=== PATIENT | female | born 1985 | race Caucasian/White ===

== ENCOUNTER 2017-05-16 07:47 | Inpatient (IN) | payer MEDICAID ==
[~2017-05-16] VITALS: Ht 160 cm; Wt 90.0 kg
[~2017-05-16 07:47] MED LIST: IBUP-1542 PO
[2017-05-16 08:55] VITALS: Ht 160 cm; Wt 90.0 kg
[2017-05-16 08:56] VITALS: BP 108/66; PULSE 78; RESP 18
[2017-05-16] MEDS ORDERED: METHYLERGONOVINE 0.2 MG INJ IM PRN ×2 (09:00→14:30)
[2017-05-16] MEDS ORDERED: OXYTOCIN 30 UNITS/LR 500 ML IV PRN ×2 (09:00→14:30)
[2017-05-16] MEDS ORDERED: MISOPROSTOL 200 MCG TAB PR PRN ×2 (09:00→14:30)
[2017-05-16] MEDS ORDERED: CARBOPROST 250 MCG INJ IM PRN ×2 (09:00→14:30)
[2017-05-16] MEDS ORDERED: CEFAZOLIN 2 GM/50 ML (PMX) 50 ML IV SCH (09:00)
[2017-05-16] MEDS: LACTATED RINGER'S 1,000 ML IV SCH ×4 (09:49→22:08)
[2017-05-16 10:01] LABS: BASOPHILS % 0.6 % (0.0-2.0); EOSINOPHILS # 0.1 10^3/ul (0.0-0.5); EOSINOPHILS % 1.8 % (0.0-7.0); HEMATOCRIT 35.9 % (37.0-47.0); HEMOGLOBIN 11.9 g/dl (12.0-16.0); LYMPHOCYTES # 2.4 10^3/ul (0.8-2.9); LYMPHOCYTES % 32.5 % (15.0-51.0); MEAN CORPUSCULAR HEMOGLOBIN 29.9 pg (29.0-33.0); MEAN CORPUSCULAR HGB CONC 33.1 g/dl (32.0-37.0); MEAN CORPUSCULAR VOLUME 90.2 fl (82.0-101.0); MEAN PLATELET VOLUME 10.3 fl (7.4-10.4); MONOCYTE # 0.4 10^3/ul (0.3-0.9); MONOCYTES % 5.8 % (0.0-11.0); NEUTROPHIL # 4.3 10^3/ul (1.6-7.5); PLATELET COUNT 224 10^3/UL (140-415); RED BLOOD COUNT 3.98 10^6/ul (4.20-5.40); RED CELL DISTRIBUTION WIDTH 13.2 % (11.5-14.5); WHITE BLOOD COUNT 7.2 10^3/ul (4.8-10.8)
[2017-05-16] MEDS ORDERED: CITRIC ACID/SODIUM CITRATE 15 ML CUP ONE (10:01)
[2017-05-16] MEDS ORDERED: CITRIC ACID/SODIUM CITRATE 15 ML CUP PO ONE (10:30)
[2017-05-16 10:35] LABS: INR 0.91; PROTIME 12.3 Sec (12.2-14.2)
[2017-05-16 10:36] LABS: PARTIAL THROMBOPLASTIN TIME 24.7 Sec (25.0-35.0)
--- NOTE | 2017-05-16 10:47 | HP ---
Date/Time of Note Date/Time of Note DATE: 05/16/17 TIME: 10:46 OB - History Hx of Present Free Text/Dictation g2p 1 at term for repeat c/s Care: Good Care Ultrasounds: Normal mid trimester US Obstetrical Complications: None Medical Complications: None Past Family/Social History * Past Medical, Surgical, Family and Obstetric Histories reviewed from chart. OB Admission Exam Vital Signs Vital Signs Vital Signs Date Time Temp Pulse Resp B/P Pulse Ox O2 Delivery O2 Flow Rate FiO2 05/16/17 08:56 98.5 78 18 108/66 Room Air Physical Exam HEENT: WNL Heart: Rhythm Normal Lungs: Clear, Equal Abdomen: WNL Extremities: Normal Reflexes: Normal Cervical Dilatation: None Effacement: 0% Station: [place] Contractions on Admission: None Last 72 hours Lab Results CBC & BMP 05/16/17 09:35 OB Assessment/Plan Reason for admission: section Plan: Section IRVING MORA MD May 16, 2017 10:47
[2017-05-16] MEDS ORDERED: KETOROLAC 30 MG INJ ONE (10:48)
[2017-05-16] MEDS ORDERED: ONDANSETRON 4 MG INJ ONE (10:48)
[2017-05-16] MEDS ORDERED: morphine SULFATE/PF (10 MG/10 ML) INJ ONE (10:48)
[2017-05-16] MEDS ORDERED: METOCLOPRAMIDE 10 MG INJ ONE (11:00)
[2017-05-16] MEDS ORDERED: EPHEDrine SULFATE 50 MG/5 ML SYG ONE (11:03)
--- NOTE | 2017-05-16 11:26 | OPR ---
Operative Report Planned Procedure Procedure date May 16, 2017 Procedure(s) repeat c/s Performed by see signature line Copy Chief dr. michel Pre-procedure diagnosis repeat c/s Anesthesia Type: spinal Post-Procedure Post-procedure diagnosis repeat c/s Findings Live Baby [], Apgars [] and [], weight [], position [], [] presentation []cord. Estimated Blood Loss: 600 - 700 mls Specimen(s) none Grafts/Implant(s) none Complication(s) none Pt Condition post procedure: stable Procedure Description Under satisfactory spinal anesthesia, the patient was prepped and draped and placed in a supine position, tilted to the left. Pfannenstiel incision was made , carried through the subcutaneous tissue. Bleeders brought under control with electrocautery. Fascia incised to the length of the incision. Rectus muscles from the fascia, divided midline. Peritoneum exposed, entered through a transverse incision. Exploration of abdomen revealed gravid uterus. Bladder flap was developed. Transverse incision was made in the lower segment of the uterus. Amniotic sac ruptured. [clear ] amniotic fluid noted. [] Nasal oropharyngeal suction was performed. The baby was handed to the team for immediate attention. The placenta was delivered manually intact. Uterine cavity was cleaned with wet sponge and drainage established. Uterus closed in 2 layers using [one monocryl] in continuous fashion. Peritoneal cavity irrigated with warm saline. Sponge, needle and instrument count reported to be correct. Abdominal peritoneum closed with [] continuously. Rectus muscle approximated with []. Fascia closed with one monocryl[], and skin closed with [place]sha. Estimated blood loss 700[]mL. IRVING MORA MD May 16, 2017 11:26
[2017-05-16] MEDS ORDERED: morphine (1 MG/ML) 10ML SYRINGE IV PRN ×3 (12:00)
[2017-05-16] MEDS ORDERED: morphine 4 MG/ML VIAL IV PRN (12:00)
[2017-05-16] MEDS ORDERED: OXYTOCIN 30 UNITS/LR 500 ML IV SCH (12:00)
[2017-05-16] MEDS ORDERED: morphine 2 MG INJ IV PRN ×2 (12:00)
[2017-05-16] MEDS ORDERED: ONDANSETRON 4 MG INJ IV PRN ×2 (12:00)
[2017-05-16] MEDS ORDERED: DIPHENHYDRAMINE 50 MG INJ IV PRN ×2 (12:00)
[2017-05-16] MEDS ORDERED: NALOXONE (0.4 MG/ML) INJ IV PRN (12:00)
[2017-05-16] MEDS: OXYTOCIN 30 UNITS/LR 500 ML IV SCH ×2 (14:24→17:40)
[2017-05-16 14:30] VITALS: BP 107/59; PULSE 64; RESP 18
[2017-05-16] MEDS ORDERED: NACL 0.9% 3 ML SYG IV SCH (14:30)
[2017-05-16] MEDS ORDERED: NA PHOSPHATE/BIPHOS 133 ML ENEMA PR PRN (14:30)
[2017-05-16] MEDS ORDERED: LANOLIN 7 GM TUBE TOP PRN (14:30)
[2017-05-16] MEDS: KETOROLAC 30 MG INJ IV PRN (17:14)
[2017-05-16] MEDS ORDERED: METOCLOPRAMIDE 10 MG INJ IV ONE (18:03)
[2017-05-16 19:40] VITALS: BP 104/58; PULSE 94; RESP 19
[2017-05-17 00:20] VITALS: BP 112/60; PULSE 86; RESP 17
[2017-05-17] MEDS: KETOROLAC 30 MG INJ IV PRN ×2 (03:48→11:03)
[2017-05-17] MEDS: LACTATED RINGER'S 1,000 ML IV SCH (03:51)
[2017-05-17 04:15] VITALS: BP 91/55; PULSE 90; RESP 18
[2017-05-17 07:40] VITALS: BP 98/56; PULSE 94; RESP 18
--- NOTE | 2017-05-17 07:52 | QN ---
Documentation Comment doing well vss abd soft d/c IV IRVING MORA MD May 17, 2017 07:52
--- NOTE | 2017-05-17 09:21 | PN ---
Date/Time of Note Date/Time of Note DATE: 05/17/17 TIME: 09:20 Assessment/Plan VTE Prophylaxis VTE Prophylaxis Intervention: ambulation Lines/Catheters IV Catheter Type (from Nrsg): Peripheral IV Subjective 24 Hr Interval Summary Free Text/Dictation Anesthesia note: A 32 year female s/p spinal duramorph POD #1 is doing fine. no pain, itching, headache, sensory or motor deficit, n?V is controlled with medicine. back is clean. care per surgery Exam/Review of Systems Vital Signs Vitals Vital Signs Date Time Temp Pulse Resp B/P Pulse Ox O2 Delivery O2 Flow Rate FiO2 05/17/17 04:15 98.9 90 18 91/55 Room Air Intake and Output 05/16/17 05/16/17 05/17/17 15:00 23:00 07:00 Intake Total 1625 ml 1200 ml 1500 ml Output Total 750 ml 400 ml 600 ml Balance 875 ml 800 ml 900 ml Results Result Diagram: 05/16/17 0935 Results 24 hrs Laboratory Tests Test 05/16/17 09:35 White Blood Count 7.2 Red Blood Count 3.98 L Hemoglobin 11.9 L Hematocrit 35.9 L Mean Corpuscular Volume 90.2 Mean Corpuscular Hemoglobin 29.9 Mean Corpuscular Hemoglobin Concent 33.1 Red Cell Distribution Width 13.2 Platelet Count 224 Mean Platelet Volume 10.3 # Neutrophils % 59.0 Lymphocytes % 32.5 Monocytes % 5.8 Eosinophils % 1.8 Basophils % 0.6 Nucleated Red Blood Cells % 0.0 Neutrophils # 4.3 Lymphocytes # 2.4 Monocytes # 0.4 Eosinophils # 0.1 Basophils # 0.0 Nucleated Red Blood Cells # 0.0 Prothrombin Time 12.3 Prothrombin Time Ratio 1.0 INR International Normalized Ratio 0.91 Activated Partial Thromboplast Time 24.7 L Rapid Plasma Reagin NONREACTIVE Hepatitis B Surface Antigen NEGATIVE Medications Medications Current Medications Naloxone HCl (Narcan) 0.1 mg Q2M PRN IV FOR RESP RATE 8 OR LESS; Start at 12:00; Stop 05/17/17 at 11:59 Ketorolac Tromethamine (Toradol) 30 mg Q6H PRN IV PAIN Last administered on t 03:48; Admin Dose 30 MG; Start 05/16/17 at 12:00; Stop 05/17/17 at 11:59 Morphine Sulfate (morphine) 2 mg Q2 PRN IV BREAKTHROUGH PAIN; Start 05/16/17 at 12:00; Stop 05/17/17 at 11:59 Morphine Sulfate (morphine) 2 mg Q3H PRN IV PAIN LEVEL 1-5; Start 05/16/17 at 12:00; Stop 05/17/17 at 11:59 Morphine Sulfate (morphine) 4 mg Q3H PRN IV PAIN LEVEL 6-10; Start 05/16/17 at 12:00; Stop 05/17/17 at 11:59 Diphenhydramine HCl (Benadryl) 25 mg Q6H PRN IV ITCHING Last administered on 17:14; Admin Dose 25 MG; Start 05/16/17 at 12:00; Stop 05/17/17 at 11: 59 Ondansetron HCl 4 mg 4 mg Q6H PRN IV NAUSEA AND/OR VOMITING Last administered on 05/16/17 15:42; Admin Dose 4 MG; Start 05/16/17 at 12:00; Stop 05/17/17 at 11:59 Lactated Ringer's (Lr) 1,000 ml @ 125 mls/hr Q8H IV Last administered on 03:51; Admin Dose 125 MLS/HR; Start 05/16/17 at 14:24 Acetaminophen/ Hydrocodone Bitart ([place] (5/325)) 2 tab Q4H PRN PO PAIN LEVEL 7 -10; Start 05/16/17 at 14:30 Ibuprofen (Motrin) 800 mg Q8 PO ; Start 05/17/17 at 14:00 Simethicone (Mylicon) 160 mg Q8H PRN PO DISTENSION/GAS/BLOATING; Start at 14:30 Sodium Biphosphate/ Sodium Phosphate (Fleet Enema) 133 ml DAILY PRN [place] CONSTIPATION; Start 05/16/17 at 14:30 Diphtheria/ Tetanus/Acell Pertussis (Adacel) 0.5 ml ONCE ONCE IM* ; Start at 09:00; Stop 05/19/17 at 09:01 Measles/Mumps/ Rubella Vaccine Live 0.5 ml 0.5 ml ONCE ONCE SC* ; Start at 09:00; Stop 05/19/17 at 09:01 Oxytocin/Lactated Ringer's 500 ml @ 0 mls/hr ONCE PRN IV For Hemorrhage Management; Start 05/16/17 at 14:30 Methylergonovine Maleate (Methergine) 0.2 mg ONCE PRN IM VAGINAL BLEEDING; Start 05/16/17 at 14:30 Carboprost Tromethamine (Hemabate) 250 mcg ONCE PRN IM VAGINAL BLEEDING; Start 05/16/17 at 14:30 Misoprostol (Cytotec) 1,000 mcg ONCE PRN [place] VAGINAL BLEEDING; Start 05/16/17 at 14:30 Influenza Virus Vaccine (Fluzone) 0.5 ml ONCE ONCE IM* ; Start 05/17/17 at 21:00 ; Stop 05/17/17 at 21:01 DONNELL MARTIN MD May 17, 2017 09:21
[2017-05-17] MEDS: IBUPROFEN 800 MG TAB PO SCH ×2 (14:10→22:13)
[2017-05-17 16:00] VITALS: BP 103/58; PULSE 91; RESP 18
[2017-05-17 20:05] VITALS: BP 106/58; PULSE 90; RESP 17
[2017-05-17] MEDS: HYDROCODONE/APAP (5/325) TAB PO PRN (20:32)
[2017-05-17] MEDS ORDERED: INFLUENZA VIRUS VACCINE 0.5 ML SYG IM* ONE (21:00)
[2017-05-18 04:20] VITALS: BP 100/58; PULSE 75; RESP 17
[2017-05-18] MEDS: IBUPROFEN 800 MG TAB PO SCH ×3 (05:48→21:37)
[2017-05-18 08:05] VITALS: BP 100/57; PULSE 82; RESP 19
[2017-05-18 09:09] LABS: BASOPHILS % 0.3 % (0.0-2.0); EOSINOPHILS # 0.2 10^3/ul (0.0-0.5); EOSINOPHILS % 1.6 % (0.0-7.0); HEMATOCRIT 27.1 % (37.0-47.0); HEMOGLOBIN 8.9 g/dl (12.0-16.0); LYMPHOCYTES # 2.3 10^3/ul (0.8-2.9); LYMPHOCYTES % 22.5 % (15.0-51.0); MEAN CORPUSCULAR HEMOGLOBIN 30.2 pg (29.0-33.0); MEAN CORPUSCULAR HGB CONC 32.8 g/dl (32.0-37.0); MEAN CORPUSCULAR VOLUME 91.9 fl (82.0-101.0); MEAN PLATELET VOLUME 10.5 fl (7.4-10.4); MONOCYTE # 0.6 10^3/ul (0.3-0.9); MONOCYTES % 5.3 % (0.0-11.0); NEUTROPHIL # 7.2 10^3/ul (1.6-7.5); NEUTROPHILS % 69.7 % (39.0-77.0); PLATELET COUNT 163 10^3/UL (140-415); RED BLOOD COUNT 2.95 10^6/ul (4.20-5.40); RED CELL DISTRIBUTION WIDTH 13.8 % (11.5-14.5); WHITE BLOOD COUNT 10.3 10^3/ul (4.8-10.8)
--- NOTE | 2017-05-18 09:58 | QN ---
Documentation Comment doing well vss abd soft d/c home next am IRVING MORA MD May 18, 2017 09:58
--- NOTE | 2017-05-18 09:59 | DS ---
Date/Time of Note Date/Time of Note DATE: 05/18/17 TIME: 09:58 Discharge Summary Admission/Discharge Info Admit Date/Time May 16, 2017 at 07:47 Discharge Date/Time Discharge Diagnosis term preg Patient Condition: Stable Hospital Course unremarkable Home Meds Discontinued Reported Medications Ibuprofen* (Ibuprofen*) 600 Mg Tablet, 600 MG PO DAILY Y for PAIN AND/OR INFLAMMATION, TAB 07/26/15 Primary Care Provider Care Physician No Primary Pending Labs Laboratory Tests Test 05/18/17 08:35 White Blood Count 10.310^3/ul (4.8-10.8) Red Blood Count 2.9510^6/ul (4.20-5.40) Hemoglobin 8.9g/dl (12.0-16.0) Hematocrit 27.1% (37.0-47.0) Mean Corpuscular Volume 91.9fl (82.0-101.0) Mean Corpuscular Hemoglobin 30.2pg (29.0-33.0) Mean Corpuscular Hemoglobin Concent 32.8g/dl (32.0-37.0) Red Cell Distribution Width 13.8% (11.5-14.5) Platelet Count 35336^3/UL (140-415) Mean Platelet Volume 10.5fl (7.4-10.4) Neutrophils % 69.7% (39.0-77.0) Lymphocytes % 22.5% (15.0-51.0) Monocytes % 5.3% (0.0-11.0) Eosinophils % 1.6% (0.0-7.0) Basophils % 0.3% (0.0-2.0) Nucleated Red Blood Cells % 0.0/100WBC (0.0-0.0) Neutrophils # 7.210^3/ul (1.6-7.5) Lymphocytes # 2.310^3/ul (0.8-2.9) Monocytes # 0.610^3/ul (0.3-0.9) Eosinophils # 0.210^3/ul (0.0-0.5) Basophils # 0.010^3/ul (0.0-0.1) Nucleated Red Blood Cells # 0.010^3/ul (0.0-0.0) IRVING MORA MD May 18, 2017 09:59
--- NOTE | 2017-05-18 11:43 | PN ---
Date/Time of Note Date/Time of Note DATE: 05/18/17 TIME: 11:36 OB Subjective Subjective Subjective Post C section day 2 Doing fairly well Afebrile Ambulatory Chest Clear Breasts are soft , Nipples are intact Abdomen is soft Fundus is firm Moderate amount of lochia Incision is clean ,No evidence of infection No calf tenderness No ankle edema New born is doing well, Breast feeding Laboratory Tests Test 05/18/17 08:35 White Blood Count 10.310^3/ul Red Blood Count 2.9510^6/ul Hemoglobin 8.9g/dl Hematocrit 27.1% Mean Corpuscular Volume 91.9fl Mean Corpuscular Hemoglobin 30.2pg Mean Corpuscular Hemoglobin Concent 32.8g/dl Red Cell Distribution Width 13.8% Platelet Count 33512^3/UL Mean Platelet Volume 10.5fl Neutrophils % 69.7% Lymphocytes % 22.5% Monocytes % 5.3% Eosinophils % 1.6% Basophils % 0.3% Nucleated Red Blood Cells % 0.0/100WBC Neutrophils # 7.210^3/ul Lymphocytes # 2.310^3/ul Monocytes # 0.610^3/ul Eosinophils # 0.210^3/ul Basophils # 0.010^3/ul Nucleated Red Blood Cells # 0.010^3/ul Current Medications Medications (Trade) Dose Ordered Sig/Juan Carlos Route PRN Reason Start Time Stop Time Status Last Admin Dose Admin Lactated Ringer's 1,000 ml @ 125 mls/hr Q8H IV 05/16/17 08:59 05/16/17 14:27 DC 05/16/17 10:06 Cefazolin Sodium/ Dextrose 50 ml @ 100 mls/hr ONCE IV 05/16/17 09:00 05/16/17 14:27 DC Oxytocin/Lactated Ringer's 500 ml @ 0 mls/hr ONCE PRN IV For Hemorrhage Management 05/16/17 09:00 05/16/17 14:27 DC Methylergonovine Maleate (Methergine) 0.2 mg ONCE PRN IM VAGINAL BLEEDING 05/16/17 09:00 05/16/17 14:27 DC Carboprost Tromethamine (Hemabate) 250 mcg ONCE PRN IM VAGINAL BLEEDING 05/16/17 09:00 05/16/17 14:27 DC Misoprostol (Cytotec) 1,000 mcg ONCE PRN [place] VAGINAL BLEEDING 05/16/17 09:00 05/16/17 14:27 DC Citric Acid/ Sodium Citrate (Bicitra) 15 ml STK-MED ONCE .ROUTE 05/16/17 10:01 05/16/17 10:02 DC Citric Acid/ Sodium Citrate (Bicitra) 30 ml PRE-OP ONCE PO 05/16/17 10:30 05/16/17 10:31 DC 05/16/17 10:14 Ondansetron HCl (Zofran Inj) 4 mg STK-MED ONCE .ROUTE 05/16/17 10:48 05/16/17 10:49 DC Ketorolac Tromethamine (Toradol) 30 mg STK-MED ONCE .ROUTE 05/16/17 10:48 05/16/17 10:49 DC Morphine Sulfate (Duramorph) 10 mg STK-MED ONCE .ROUTE 05/16/17 10:48 05/16/17 10:49 DC Metoclopramide HCl (Reglan) 10 mg STK-MED ONCE .ROUTE 05/16/17 11:00 05/16/17 11:01 DC Ephedrine Sulfate 50 mg STK-MED ONCE .ROUTE 05/16/17 11:03 05/16/17 11:04 DC Morphine Sulfate (morphine (REC)) 2 mg PACU ORDER PRN IV MILD PAIN LEVEL 1-3 05/16/17 12:00 05/16/17 18:00 DC Morphine Sulfate (morphine (REC)) 4 mg PACU ORDER PRN IV MODERATE PAIN LEVEL 4-6 05/16/17 12:00 05/16/17 18:00 DC Morphine Sulfate (morphine (REC)) 6 mg PACU ORDER PRN IV SEVERE PAIN LEVEL 7-10 05/16/17 12:00 05/16/17 18:00 DC Ondansetron HCl (Zofran Inj) 4 mg PACU ORDER PRN IV NAUSEA AND/OR VOMITING 05/16/17 12:00 05/16/17 18:00 DC Diphenhydramine HCl (Benadryl) 25 mg PACU ORDER PRN IV PRURITUS 05/16/17 12:00 05/16/17 14:27 DC Naloxone HCl (Narcan) 0.1 mg Q2M PRN IV FOR RESP RATE 8 OR LESS 05/16/17 12:00 05/17/17 11:59 DC Ketorolac Tromethamine (Toradol) 30 mg Q6H PRN IV PAIN 05/16/17 12:00 05/17/17 11:59 DC 05/17/17 11:03 Morphine Sulfate (morphine) 2 mg Q2 PRN IV BREAKTHROUGH PAIN 05/16/17 12:00 05/17/17 11:59 DC Morphine Sulfate (morphine) 2 mg Q3H PRN IV PAIN LEVEL 1-5 05/16/17 12:00 05/17/17 11:59 DC Morphine Sulfate (morphine) 4 mg Q3H PRN IV PAIN LEVEL 6-10 05/16/17 12:00 05/17/17 11:59 DC Diphenhydramine HCl (Benadryl) 25 mg Q6H PRN IV ITCHING 05/16/17 12:00 05/17/17 11:59 DC 05/16/17 17:14 Ondansetron HCl 4 mg 4 mg Q6H PRN IV NAUSEA AND/OR VOMITING 05/16/17 12:00 05/17/17 11:59 DC 05/16/17 15:42 Oxytocin/Lactated Ringer's 500 ml @ 125 mls/hr Q4H IV 05/16/17 12:00 05/16/17 14:27 DC 05/16/17 13:40 Lactated Ringer's (Lr) 1,000 ml @ 125 mls/hr Q8H IV 05/16/17 14:24 05/17/17 12:49 DC 05/17/17 03:51 IV Flush 3 ml 3 ml PER PROTOCOL IV 05/16/17 14:30 05/17/17 12:49 DC Oxytocin/Lactated Ringer's 500 ml @ 125 mls/hr Q4H IV 05/16/17 14:24 05/16/17 22:23 DC 05/16/17 17:40 Acetaminophen/ Hydrocodone Bitart ([place] (5/325)) 2 tab Q4H PRN PO PAIN LEVEL 7-10 05/16/17 14:30 05/17/17 20:32 Ibuprofen (Motrin) 800 mg Q8 PO 05/17/17 14:00 05/18/17 05:48 Simethicone (Mylicon) 160 mg Q8H PRN PO DISTENSION/GAS/BLOATING 05/16/17 14:30 05/18/17 09:14 Sodium Biphosphate/ Sodium Phosphate (Fleet Enema) 133 ml DAILY PRN [place] CONSTIPATION 05/16/17 14:30 Lanolin (Wza-P-Spyodx) 1 applic BEDSIDE MEDICATION PRN TOP BEDSIDE FOR ALYCE TO NIPPLES 05/16/17 14:30 05/17/17 20:34 Diphtheria/ Tetanus/Acell Pertussis (Adacel) 0.5 ml ONCE ONCE IM* 05/19/17 09:00 05/19/17 09:00 DC Measles/Mumps/ Rubella Vaccine Live 0.5 ml 0.5 ml ONCE ONCE SC* 05/19/17 09:00 05/19/17 09:00 DC Oxytocin/Lactated Ringer's 500 ml @ 0 mls/hr ONCE PRN IV For Hemorrhage Management 05/16/17 14:30 Methylergonovine Maleate (Methergine) 0.2 mg ONCE PRN IM VAGINAL BLEEDING 05/16/17 14:30 Carboprost Tromethamine (Hemabate) 250 mcg ONCE PRN IM VAGINAL BLEEDING 05/16/17 14:30 Misoprostol (Cytotec) 1,000 mcg ONCE PRN [place] VAGINAL BLEEDING 05/16/17 14:30 Metoclopramide HCl (Reglan) 10 mg ONCE ONCE IV 05/16/17 18:03 05/16/17 18:04 DC 05/16/17 18:07 Influenza Virus Vaccine (Fluzone) 0.5 ml ONCE ONCE IM* 05/17/17 21:00 05/17/17 21:01 DC 05/17/17 22:15 Her Hb and hct are 8.39 and 27.1 today .we don't have the value for PP day one Will repeat H & H in am tomorrow. SHERLEY RAYGOZA MD May 18, 2017 11:43
[2017-05-18] MEDS: HYDROCODONE/APAP (5/325) TAB PO PRN (15:56)
[2017-05-18 16:00] VITALS: BP 102/61; PULSE 87; RESP 16
[2017-05-18 20:00] VITALS: BP 101/58; PULSE 77; RESP 20
[2017-05-19 04:00] VITALS: BP 101/56; PULSE 70; RESP 20
[2017-05-19] MEDS: IBUPROFEN 800 MG TAB PO SCH ×2 (05:33→14:14)
[2017-05-19 07:50] VITALS: BP 111/70; PULSE 78; RESP 19
[2017-05-19] MEDS ORDERED: DIPHTH/TET/ACEL PERTUSS (ADULT) 0.5 ML VIAL IM* ONE (09:00)
[2017-05-19] MEDS ORDERED: MEASLES,MUMPS,RUBELLA VACCINE INJ SC* ONE (09:00)
[2017-05-19 09:17] LABS: BASOPHILS % 0.3 % (0.0-2.0); EOSINOPHILS # 0.3 10^3/ul (0.0-0.5); EOSINOPHILS % 3.4 % (0.0-7.0); HEMATOCRIT 28.1 % (37.0-47.0); HEMOGLOBIN 9.1 g/dl (12.0-16.0); LYMPHOCYTES # 1.9 10^3/ul (0.8-2.9); LYMPHOCYTES % 25.2 % (15.0-51.0); MEAN CORPUSCULAR HEMOGLOBIN 29.7 pg (29.0-33.0); MEAN CORPUSCULAR HGB CONC 32.4 g/dl (32.0-37.0); MEAN CORPUSCULAR VOLUME 91.8 fl (82.0-101.0); MEAN PLATELET VOLUME 10.1 fl (7.4-10.4); MONOCYTE # 0.4 10^3/ul (0.3-0.9); MONOCYTES % 4.8 % (0.0-11.0); NEUTROPHIL # 5.1 10^3/ul (1.6-7.5); NEUTROPHILS % 65.9 % (39.0-77.0); PLATELET COUNT 174 10^3/UL (140-415); RED BLOOD COUNT 3.06 10^6/ul (4.20-5.40); RED CELL DISTRIBUTION WIDTH 13.7 % (11.5-14.5); WHITE BLOOD COUNT 7.7 10^3/ul (4.8-10.8)
== END 2017-05-19 14:50 | disposition home or self-care (01) | DRG 766 ==
LOC: L-D 07:47 → PP1 14:31
PROVIDERS: ADMIT Obstetrics & Gynecology; ATTEND Obstetrics & Gynecology
PROC: 10D00Z1 Extraction of Products of Conception, Low, Open Approach (ICD-10-PCS; principal; 2017-05-16 15:30)
PROC: 3E0234Z Introduction of Serum, Toxoid and Vaccine into Muscle, Percutaneous Approach (ICD-10-PCS; 2017-05-17)
DX: O34.219 Maternal care for unspecified type scar from previous cesarean delivery (principal); Z23 Encounter for immunization; Z37.0 Single live birth; Z3A.39 39 weeks gestation of pregnancy
CPT/HCPCS: 85025; 85610; 85730; 86592; 86850; 86900; 86901; 87340; 90686; 99464; J0690; J1200; J1885; J2274; J2405; J2590; J2765; J7120

== ENCOUNTER 2017-10-24 13:40 | Emergency (ER) | END 2017-10-24 19:51 | disposition home or self-care (01) ==